=== PATIENT | male | born 1950 | race Caucasian/White ===

== ENCOUNTER 2019-05-17 09:03 | Day surgery (SDC) | payer MEDICARE | END 2019-05-17 23:59 | disposition home or self-care (01) | LOC: RAD 09:03 | PROVIDERS: ATTEND Internal Medicine Hematology & Oncology | DX: D47.3 Essential (hemorrhagic) thrombocythemia (principal); Z79.899 Other long term (current) drug therapy; Z87.891 Personal history of nicotine dependence | CPT/HCPCS: 36415; 77012; 85025; 85060; 85097; 88184; 88185; 88237; 88264; 88280; 88305; 88311; 88313; 88342 ==